=== PATIENT | female | born 1995 | race American Indian/Alaskan Native ===

== ENCOUNTER 2021-05-02 23:22 | Inpatient (IN) | payer MEDICAID ==
[2021-05-03] MEDS ORDERED: MORPHINE 4 MG/1 ML INJ IV ONE ×2 (02:42→04:54)
[2021-05-03] MEDS ORDERED: ONDANSETRON 4 MG/2 ML INJ IV ONE ×2 (02:42→04:54)
[2021-05-03] MEDS ORDERED: FAMOTIDINE 20 MG/2 ML INJ IV ONE (02:42)
[2021-05-03] MEDS ORDERED: SODIUM CHLORIDE 0.9% 1000 ML 1,000 ML IV ONE (02:42)
[2021-05-03 03:22] LABS: Basophils # (Auto) 0.1 K/mm3 (0.0-0.1); Basophils % (Auto) 0.7 % (0.0-1.8); Eosinophils # (Auto) 0.1 K/mm3 (0.0-0.4); Eosinophils % (Auto) 1.1 % (0.0-4.3); Hematocrit 39.4 % (30.3-42.9); Lymphocytes # (Auto) 2.9 K/mm3 (1.2-5.4); Lymphocytes % (Auto) 32.9 % (13.4-35.0); Mean Corpuscular HGB Conc 33 % (30-34); Mean Corpuscular Volume 92 fl (79-97); Monocytes # (Auto) 0.4 K/mm3 (0.0-0.8); Monocytes % (Auto) 5.1 % (0.0-7.3); Platelet Count 320 K/mm3 (140-440); Red Blood Count 4.26 M/mm3 (3.65-5.03); Red Cell Distribution Width 14.2 % (13.2-15.2)
[2021-05-03 03:43] LABS: Alanine Aminotransferase 17 units/L (7-56); Albumin 4.4 g/dL (3.9-5); Blood Urea Nitrogen 8 mg/dL (7-17); Calcium 9.1 mg/dL (8.4-10.2); Hemolysis Index 11
[2021-05-03 03:44] LABS: BUN/Creatinine Ratio 13
[2021-05-03 04:01] LABS: Bilirubin,Urine NEG (Negative); Blood,Urine NEG (Negative); Color,Urine Yellow (Yellow); Protein,Urine <15 mg/dL mg/dL (Negative); Urobilinogen,Urine < 2.0 mg/dL (<2.0)
[2021-05-03 04:15] LABS: RBC,Urine < 1.0 /HPF (0.0-6.0); WBC,Urine < 1.0 /HPF (0.0-6.0)
--- NOTE | 2021-05-03 04:33 | Cat Scan Report ---
CT ABDOMEN AND PELVIS WITH IV CONTRAST INDICATION: abdominal pain. COMPARISON: None available. TECHNIQUE: All CT scans at this facility use dose modulation, automated exposure control, iterative reconstructi on or weight based dosing, when appropriate, to reduce radiation dose to as low as reasonably achieva ble. FINDINGS: Lung Bases: No significant abnormality. Skeletal System: No acute abnormality. ABDOMEN: Liver: No significant abnormality. Gallbladder: There are several small gallstones. Mild gallbladder wall edema. Bile Ducts: No significant abnormality. Adrenals: No significant abnormality. Right Kidney: No significant abnormality. Left Kidney: No significant abnormality. Pancreas: No significant abnormality. Spleen: No significant abnormality. Upper GI tract: No significant abnormality. Lymph Nodes: No significant adenopathy. Aorta: No significant abnormality. Additional Findings: No significant abnormality. PELVIS: Colon: No acute abnormality. Diverticulosis is noted. Urinary Bladder and Distal Ureters: No significant abnormality. Appendix: Removed. Lymph Nodes: No significant adenopathy. Additional Findings: There is an incidental left ovarian cyst. IMPRESSION: 1. Cholelithiasis with mild gallbladder wall edema suggestive of acute cholecystitis. 2. Incidental findings, as above. Signer Name: Silver Tatum MD Signed: 05/03/2021 4:28 AM Workstation Name: [id number]
--- NOTE | 2021-05-03 04:47 | Emergency Department Report ---
ED Abdominal Pain HPI - General Chief Complaint: Abdominal Pain Stated Complaint: ABD PAIN Source: patient Mode of arrival: Ambulatory Limitations: No Limitations - History of Present Illness Initial Comments: Patient is a 25-year-old -Burkin[place] female with a history of iron deficiency anemia and s/p lap appendectomy 6 months ago presents to the ED with complaint of acute onset persistent right upper quadrant pain that radiates to the epigastric area with nausea and vomiting and diarrhea for the last 2 days. Patient states that she has not been able to keep anything down in the last 12 hours because of worsening pain and nausea and vomiting. Patient denies fever, chills, dizziness, syncope, chest pain, cough, dysuria, urinary frequency and urgency, change in vision, traumatic injury, hematemesis, hematochezia or vaginal bleeding. MD Complaint: abdominal pain (Right upper quadrant pain and epigastric pain;), other (nausea, vomiting and diarrhea) -: Sudden, days(s) (2) Location: RUQ, epigastric Radiation: RUQ, epigastric Migration to: RUQ, epigastric Severity scale (0 -10): 8 Quality: aching, sharp Consistency: constant Improves With: nothing Worsens With: vomiting, movement Context: possible food poisoning, other (GERD) Associated Symptoms: denies other symptoms, nausea, vomiting, diarrhea, anorexia. denies: fever, melena, hematuria - Related Data LMP Date: 04/08/21 Allergies Allergy/AdvReac Type Severity Reaction Status Date / Time No Known Allergies Allergy Verified 05/03/21 00:47 ED Review of Systems ROS: Stated complaint: ABD PAIN Other details as noted in HPI Constitutional: malaise, weakness. denies: chills, fever Eyes: denies: eye pain, eye discharge, vision change ENT: denies: ear pain, throat pain Respiratory: denies: cough, shortness of breath, wheezing Cardiovascular: denies: chest pain, palpitations Endocrine: no symptoms reported Gastrointestinal: abdominal pain (Right upper quadrant, epigastric pain), nausea, vomiting. denies: diarrhea Genitourinary: denies: urgency, dysuria, frequency, hematuria, discharge, abnormal menses Musculoskeletal: denies: back pain, joint swelling, arthralgia Skin: denies: rash, lesions Neurological: denies: headache, weakness, paresthesias Psychiatric: denies: anxiety, depression Hematological/Lymphatic: denies: easy bleeding, easy bruising ED Past Medical Hx - Past Medical History Previous Medical History?: Yes Additional medical history: Anemia - Surgical History Past Surgical History?: Yes Additional Surgical History: Appendix ED Physical Exam - General Limitations: No Limitations General appearance: alert, in no apparent distress - Head Head exam: Present: atraumatic, normocephalic, normal inspection - Eye Eye exam: Present: normal appearance, PERRL, EOMI Pupils: Present: normal accommodation - ENT ENT exam: Present: normal exam, normal orophraynx, mucous membranes moist, TM's normal bilaterally, normal external ear exam - Neck Neck exam: Present: normal inspection, full ROM - Respiratory Respiratory exam: Present: normal lung sounds bilaterally. Absent: respiratory distress, wheezes, rhonchi, stridor, chest wall tenderness, accessory muscle use - Cardiovascular Cardiovascular Exam: Present: normal rhythm, bradycardia, normal heart sounds. Absent: systolic murmur, diastolic murmur, rubs, gallop - GI/Abdominal GI/Abdominal exam: Present: soft, tenderness (Palpable reproducible right upper quadrant tenderness with positive Aggarwal sign), guarding, rebound, normal bowel sounds. Absent: distended, hyperactive bowel sounds, hypoactive bowel sounds, organomegaly - Extremities Exam Extremities exam: Present: normal inspection, full ROM, normal capillary refill - Back Exam Back exam: Present: normal inspection, full ROM. Absent: tenderness, CVA tenderness (R), CVA tenderness (L), muscle spasm, paraspinal tenderness, vertebral tenderness - Neurological Exam Neurological exam: Present: alert, oriented X3, CN II-XII intact, normal gait, reflexes normal - Psychiatric Psychiatric exam: Present: normal affect, normal mood - Skin Skin exam: Present: warm, dry, intact, normal color. Absent: rash ED Course Vital Signs 05/03/21 05/03/21 05/03/21 00:44 03:06 03:36 Temperature 98.5 F Pulse Rate 57 L Respiratory 17 14 14 Rate Blood Pressure 157/100 [Right] O2 Sat by Pulse 100 Oximetry - Reevaluation(s) Reevaluation #1: 05/03/21 04:48 I paged and discussed the patient's case with the general surgeon Dr. Dickens on- call who advised the patient the admitted to the hospital by the hospitalist physician and that the patient be started on IV antibiotics, pain medications and IV fluids and that she shall consult on the patient upon admission. ED Medical Decision Making - Lab Data Result diagrams: 05/03/21 02:58 05/03/21 02:58 - Radiology Data Radiology results: report reviewed, image reviewed [facility] [address] [place] [address] Cat Scan Report Signed Patient: CORTNEY SANTIAGO MR#: [id number] 8 : 1995 Acct:[id number] Age/Sex: 25 / F ADM Date: 05/02/21 Loc: ED Attending Dr: Ordering Physician: NAVIN CARTER Date of Service: 05/03/21 Procedure(s): CT abdomen pelvis w con Accession Number(s): [id number] cc: NAVIN CARTER CT ABDOMEN AND PELVIS WITH IV CONTRAST INDICATION: abdominal pain. COMPARISON: None available. TECHNIQUE: All CT scans at this facility use dose modulation, automated exposure control, iterative reconstruction or weight based dosing, when appropriate, to reduce radiation dose to as low as reasonably achievable. FINDINGS: Lung Bases: No significant abnormality. Skeletal System: No acute abnormality. ABDOMEN: Liver: No significant abnormality. Gallbladder: There are several small gallstones. Mild gallbladder wall edema. Bile Ducts: No significant abnormality. Adrenals: No significant abnormality. Right Kidney: No significant abnormality. Left Kidney: No significant abnormality. Pancreas: No significant abnormality. Spleen: No significant abnormality. Upper GI tract: No significant abnormality. Lymph Nodes: No significant adenopathy. Aorta: No significant abnormality. Additional Findings: No significant abnormality. PELVIS: Colon: No acute abnormality. Diverticulosis is noted. Urinary Bladder and Distal Ureters: No significant abnormality. Appendix: Removed. Lymph Nodes: No significant adenopathy. Additional Findings: There is an incidental left ovarian cyst. IMPRESSION: 1. Cholelithiasis with mild gallbladder wall edema suggestive of acute cholecystitis. 2. Incidental findings, as above. Signer Name: Silver Tatum MD Signed: 05/03/2021 4:28 AM Workstation Name: [id number] Transcribed By: PRAVEEN Dictated By: Silver Tatum MD Electronically Authenticated By: Silver Tatum MD Signed Date/Time: 05/03/21427 DD/ 5 TD/TT: - Medical Decision Making This is a 25-year-old -Burkin[place] female with a history of iron deficiency anemia and s/p lap appendectomy 6 months ago presents to the ED with complaint of acute onset persistent right upper quadrant pain that radiates to the epigastric area with nausea and vomiting and diarrhea for the last 2 days. Patient states that she has not been able to keep anything down in the last 12 hours because of worsening pain and nausea and vomiting. In the ED, patient is alert and oriented x3 and is not in any distress but appears to be in significant pain. Patient was treated for pain in the ED, also given antiemetics and antacids as well as normal saline 1 L IV bolus x1. Lab test results were reviewed and are all nonactionable including urinalysis. Abdomen pelvis CT scan with contrast showed cholelithiasis with mild gallbladder wall edema suggestive of acute cholecystitis. I therefore paged and discussed the patient's case with the general general surgeon on-call Dr. Dickens who advised that the patient be admitted to the hospital by the hospitalist physician on- call and that she shall consult on the patient upon admission. She also advised that the patient be started on IV antibiotics and pain medications as needed. I therefore paged and discussed the patient's case with the hospitalist physician Dr. Kyle who admitted the patient to the hospital. - Differential Diagnosis Cholelithiasis; cholecystitis; GERD; gastroenteritis; kidney stone; pregnan Critical care attestation.: If time is entered above; I have spent that time in minutes in the direct care of this critically ill patient, excluding procedure time. ED Disposition Clinical Impression: Acute abdominal pain in right upper quadrant, Nausea, vomiting and diarrhea Cholelithiasis and cholecystitis without obstruction Qualifiers: Cholelithiasis location: gallbladder Cholecystitis acuity: acute Qualified Code(s): K80.00 - Calculus of gallbladder with acute cholecystitis without obstruction Disposition: 02 [facility] Is pt being admited?: Yes Does the pt Need Aspirin: No Condition: Stable Instructions: Abdominal Pain (ED), Abdominal Pain, Adult, [id number], Cholelithiasis, [id number], Nausea and Vomiting, Adult, [id number] Referrals: PRIMARY CARE,MD [Primary Care Provider] - 3-5 Days Time of Disposition: 05:02 Print Language: EQUATORIAL GUINEAN
[2021-05-03] MEDS ORDERED: PIPERACILLIN/TAZOBACTAM 3.375 3.375 GM/50 ML BAG IV ONE (04:59)
[2021-05-03] MEDS ORDERED: ONDANSETRON 4 MG/2 ML INJ IV PRN (05:13)
[2021-05-03] MEDS ORDERED: HYDROmorphone 1 MG/1 ML INJ IV PRN (05:13)
[2021-05-03] MEDS ORDERED: ACETAMINOPHEN 325 MG TAB PO PRN (05:13)
--- NOTE | 2021-05-03 08:45 | History and Physical Report ---
History of Present Illness Date of examination: 05/03/21 Date of admission: 05/03/21 05:13 Chief complaint: Abdominal pain. History of present illness: Patient is a 25-year-old -Singaporean female with a history of iron deficiency anemia and s/p lap appendectomy 6 months ago presents to the ED with complaint of acute onset persistent right upper quadrant pain that radiates to the epigastric area with nausea and diarrhea for the last 2-3 weeks (but worsened over the last 3 days). Patient states that she has not been able to keep anything down in the last 12 hours because of worsening pain and nausea and vomiting. Patient denies fever, chills, dizziness, syncope, chest pain, cough, dysuria, urinary frequency and urgency, change in vision, traumatic injury, hematemesis, hematochezia or vaginal bleeding. Past History Past Surgical History: appendectomy, Other (Liposuction) Social history: , lives with family, full code Family history: hypertension Medications and Allergies Allergies Allergy/AdvReac Type Severity Reaction Status Date / Time No Known Allergies Allergy Verified 05/03/21 00:47 Home Medications Medication Instructions Recorded Confirmed Last Taken Type No Known Home Medications [No 05/03/21 05/03/21 Unknown History Reported Home Medications] Active Meds: Active Medications Acetaminophen (Acetaminophen 325 Mg Tab) 650 mg PO Q4H PRN PRN Reason: Pain MILD(1-3)/Fever >100.5/DESIR Hydromorphone HCl (Hydromorphone 1 Mg/1 Ml Inj) 0.5 mg IV Q3H PRN PRN Reason: Pain , Severe (7-10) Morphine Sulfate (Morphine 2 Mg/1 Ml Inj) 2 mg IV Q4H PRN PRN Reason: Pain, Moderate (4-6) Morphine Sulfate (Morphine 4 Mg/1 Ml Inj) 4 mg IV Q4H PRN PRN Reason: Pain , Severe (7-10) Ondansetron HCl (Ondansetron 4 Mg/2 Ml Inj) 4 mg IV Q8H PRN PRN Reason: Nausea And Vomiting Sodium Chloride (Sodium Chloride 0.9% 10 Ml Flush Syringe) 10 ml IV BID CHIP Sodium Chloride (Sodium Chloride 0.9% 10 Ml Flush Syringe) 10 ml IV PRN PRN PRN Reason: LINE FLUSH Review of Systems All systems: negative Gastrointestinal: abdominal pain, nausea, loss of appetite Exam - Constitutional Vitals: Temp Pulse Resp BP Pulse Ox 97.6 F 48 L 16 123/66 100 05/03/21 06:25 05/03/21 06:25 05/03/21 06:25 05/03/21 06:25 05/03/21 06:25 General appearance: Present: no acute distress, well-nourished, obese - EENT Eyes: Present: PERRL, EOM intact ENT: hearing intact, clear oral mucosa, dentition normal - Neck Neck: Present: supple, normal ROM - Respiratory Respiratory effort: normal Respiratory: bilateral: CTA - Cardiovascular Rhythm: regular Heart Sounds: Present: S1 & S2 - Extremities Extremities: no ischemia, pulses intact, pulses symmetrical, No edema, normal temperature, normal color, Full ROM Peripheral Pulses: within normal limits - Abdominal General gastrointestinal: Present: soft, tender, non-distended, distended Localized gastrointestinal: tender: epigastric periumbilical Female genitourinary: Present: deferred - Rectal Rectal Exam: deferred - Integumentary Integumentary: Present: clear, warm, dry - Musculoskeletal Musculoskeletal: strength equal bilaterally - Psychiatric Psychiatric: appropriate mood/affect, intact judgment & insight, memory intact, cooperative - Neurologic Neurologic: CNII-XII intact, moves all extremities - Allied Health Allied health notes reviewed: nursing Results - Labs CBC & Chem 7: 05/03/21 02:58 05/03/21 02:58 Labs: Laboratory Last Values WBC 8.7 K/mm3 (4.5-11.0) 05/03/21 02:58 RBC 4.26 M/mm3 (3.65-5.03) 05/03/21 02:58 Hgb 13.0 gm/dl (10.1-14.3) 05/03/21 02:58 Hct 39.4 % (30.3-42.9) 05/03/21 02:58 MCV 92 fl (79-97) 05/03/21 02:58 MCH 31 pg (28-32) 05/03/21 02:58 MCHC 33 % (30-34) 05/03/21 02:58 RDW 14.2 % (13.2-15.2) 05/03/21 02:58 Plt Count 320 K/mm3 (140-440) 05/03/21 02:58 Lymph % (Auto) 32.9 % (13.4-35.0) 05/03/21 02:58 [place] % (Auto) 5.1 % (0.0-7.3) 05/03/21 02:58 Eos % (Auto) 1.1 % (0.0-4.3) 05/03/21 02:58 Baso % (Auto) 0.7 % (0.0-1.8) 05/03/21 02:58 Lymph # (Auto) 2.9 K/mm3 (1.2-5.4) 05/03/21 02:58 [place] # (Auto) 0.4 K/mm3 (0.0-0.8) 05/03/21 02:58 Eos # (Auto) 0.1 K/mm3 (0.0-0.4) 05/03/21 02:58 Baso # (Auto) 0.1 K/mm3 (0.0-0.1) 05/03/21 02:58 Seg Neutrophils % 60.2 % (40.0-70.0) 05/03/21 02:58 Seg Neutrophils # 5.3 K/mm3 (1.8-7.7) 05/03/21 02:58 Sodium 141 mmol/L (137-145) 05/03/21 02:58 Potassium 3.8 mmol/L (3.6-5.0) 05/03/21 02:58 Chloride 102.6 mmol/L (98-107) 05/03/21 02:58 Carbon Dioxide 23 mmol/L (22-30) 05/03/21 02:58 Anion Gap 19 mmol/L 05/03/21 02:58 BUN 8 mg/dL (7-17) 05/03/21 02:58 Creatinine 0.6 mg/dL (0.6-1.2) 05/03/21 02:58 Estimated GFR > 60 ml/min 05/03/21 02:58 BUN/Creatinine Ratio 13 % 05/03/21 02:58 Glucose 89 mg/dL (65-100) 05/03/21 02:58 Calcium 9.1 mg/dL (8.4-10.2) 05/03/21 02:58 Total Bilirubin 0.30 mg/dL (0.1-1.2) 05/03/21 02:58 AST 19 units/L (5-40) 05/03/21 02:58 ALT 17 units/L (7-56) 05/03/21 02:58 Alkaline Phosphatase 93 units/L (35-129) 05/03/21 02:58 Total Protein 7.8 g/dL (6.3-8.2) 05/03/21 02:58 Albumin 4.4 g/dL (3.9-5) 05/03/21 02:58 Albumin/Globulin Ratio 1.3 % 05/03/21 02:58 Lipase 38 units/L (13-60) 05/03/21 02:58 HCG, Qual Negative (Negative) 05/03/21 02:58 Urine Color Yellow (Yellow) 05/03/21 03:26 Urine Turbidity Clear (Clear) 05/03/21 03:26 Urine pH 6.0 (5.0-7.0) 05/03/21 03:26 Ur Specific [place] 1.021 (1.003-1.030) 05/03/21 03:26 Urine Protein <15 mg/dl mg/dL (Negative) 05/03/21 03:26 Urine Glucose (UA) Neg mg/dL (Negative) 05/03/21 03:26 Urine Ketones Neg mg/dL (Negative) 05/03/21 03:26 Urine Blood Neg (Negative) 05/03/21 03:26 Urine Nitrite Neg (Negative) 05/03/21 03:26 Urine Bilirubin Neg (Negative) 05/03/21 03:26 Urine Urobilinogen < 2.0 mg/dL (<2.0) 05/03/21 03:26 Ur Leukocyte Esterase Neg (Negative) 05/03/21 03:26 Urine WBC (Auto) < 1.0 /HPF (0.0-6.0) 05/03/21 03:26 Urine RBC (Auto) < 1.0 /HPF (0.0-6.0) 05/03/21 03:26 Assessment and Plan Assessment and plan: #Acute cholecystitis CT abdomen/pelvis with contrast consistent with possible acute cholecystitis Continue n.p.o. status General surgery consulted; appreciate recs Continue analgesics as needed and antiemetics Continue to monitor #Obesity #Weight loss counseling #Exercise counseling - BMI 37.6 - Counseled patient on the importance of weight loss, incorporating exercise, and dietary changes (lean meats, fresh fruits and vegetables, and water intake). Patient expresses understanding. - Time: +15 min #Advanced care planning -Disease education conducted, care plan discussed, diagnoses discussed, prognosis discussed, and patient acknowledges understanding with care plan -Time: +30 min Advance Directives: Yes VTE prophylaxis?: Chemical Plan of care discussed with patient/family: Yes
[2021-05-03] MEDS ORDERED: MORPHINE 4 MG/1 ML INJ IV PRN (10:00)
[2021-05-03] MEDS: HEPARIN 5,000 UNIT/1 ML VIAL SUB-Q SCH ×3 (10:12→21:12)
--- NOTE | 2021-05-03 11:05 | Consultation ---
History of Present Illness Consult date: 05/03/21 Reason for consult: gallstones - History of present illness History of present illness: General surgery called to consult on 25-year-old female who presented to the emergency room with a less than 1 day history of worsening right sided abdominal pain with nausea and vomiting. Patient had a CT scan that showed cholelithiasis, and gallbladder wall edema suggestive of cholecystitis. Patient says currently she feels much better than on admission and she has never had this pain before. Past History Past Medical History: No medical history Past Surgical History: appendectomy, Other (liposuction) Social history: no significant social history Family history: hypertension Medications and Allergies Allergies Allergy/AdvReac Type Severity Reaction Status Date / Time No Known Allergies Allergy Verified 05/03/21 00:47 Home Medications Medication Instructions Recorded Confirmed Last Taken Type No Known Home Medications [No 05/03/21 05/03/21 Unknown History Reported Home Medications] Active Meds: Active Medications Acetaminophen (Acetaminophen 325 Mg Tab) 650 mg PO Q4H PRN PRN Reason: Pain MILD(1-3)/Fever >100.5/DESIR Heparin Sodium (Porcine) (Heparin 5,000 Unit/1 Ml Vial) 5,000 unit SUB-Q Q8HR [facility] Last Admin: 05/03/21 10:12 Dose: 5,000 unit Hydromorphone HCl (Hydromorphone 1 Mg/1 Ml Inj) 0.5 mg IV Q3H PRN PRN Reason: Pain , Severe (7-10) Morphine Sulfate (Morphine 2 Mg/1 Ml Inj) 2 mg IV Q4H PRN PRN Reason: Pain, Moderate (4-6) Morphine Sulfate (Morphine 4 Mg/1 Ml Inj) 4 mg IV Q4H PRN PRN Reason: Pain , Severe (7-10) Ondansetron HCl (Ondansetron 4 Mg/2 Ml Inj) 4 mg IV Q8H PRN PRN Reason: Nausea And Vomiting Sodium Chloride (Sodium Chloride 0.9% 10 Ml Flush Syringe) 10 ml IV BID [facility] Last Admin: 05/03/21 10:13 Dose: 10 ml Sodium Chloride (Sodium Chloride 0.9% 10 Ml Flush Syringe) 10 ml IV PRN PRN PRN Reason: LINE FLUSH Review of Systems All systems: negative - Gastrointestinal abdominal pain, nausea, vomiting Exam Vital Signs Temp Pulse Resp BP Pulse Ox 98.5 F 57 L 17 157/100 100 05/03/21 00:44 05/03/21 00:44 05/03/21 00:44 05/03/21 00:44 05/03/21 00:44 - General physical appearance Positive: well developed, no distress, no pain - Eyes Negative: icteric - ENT Positive: no hearing loss - Respiratory Positive: normal expansion, normal respiratory effort - Cardiovascular Heart Sounds: Present: S1 & S2 - Extremities Extremities: no ischemia - Abdomen Abdomen: Present: soft, other (tender to deep palpation in the RUQ) - Neurologic Neurologic: alert and oriented to time, place and person, motor strength and sensation are grossly intact, CN II-XII intact - Musculoskeletal normal gait - Psychiatric Psychiatric: appropriate mood/affect Results - Labs 05/03/21 02:58 05/03/21 02:58 Diabetes panel 05/03/21 Range/Units 02:58 Sodium 141 (137-145) mmol/L Potassium 3.8 (3.6-5.0) mmol/L Chloride 102.6 (98-107) mmol/L Carbon Dioxide 23 (22-30) mmol/L BUN 8 (7-17) mg/dL Creatinine 0.6 (0.6-1.2) mg/dL Glucose 89 (65-100) mg/dL Calcium 9.1 (8.4-10.2) mg/dL AST 19 (5-40) units/L ALT 17 (7-56) units/L Alkaline Phosphatase 93 (35-129) units/L Total Protein 7.8 (6.3-8.2) g/dL Albumin 4.4 (3.9-5) g/dL Calcium panel 05/03/21 Range/Units 02:58 Calcium 9.1 (8.4-10.2) mg/dL Albumin 4.4 (3.9-5) g/dL Pituitary panel 05/03/21 Range/Units 02:58 Sodium 141 (137-145) mmol/L Potassium 3.8 (3.6-5.0) mmol/L Chloride 102.6 (98-107) mmol/L Carbon Dioxide 23 (22-30) mmol/L BUN 8 (7-17) mg/dL Creatinine 0.6 (0.6-1.2) mg/dL Glucose 89 (65-100) mg/dL Calcium 9.1 (8.4-10.2) mg/dL Adrenal panel 05/03/21 Range/Units 02:58 Sodium 141 (137-145) mmol/L Potassium 3.8 (3.6-5.0) mmol/L Chloride 102.6 (98-107) mmol/L Carbon Dioxide 23 (22-30) mmol/L BUN 8 (7-17) mg/dL Creatinine 0.6 (0.6-1.2) mg/dL Glucose 89 (65-100) mg/dL Calcium 9.1 (8.4-10.2) mg/dL Total Bilirubin 0.30 (0.1-1.2) mg/dL AST 19 (5-40) units/L ALT 17 (7-56) units/L Alkaline Phosphatase 93 (35-129) units/L Total Protein 7.8 (6.3-8.2) g/dL Albumin 4.4 (3.9-5) g/dL - Imaging CT scan - abdomen: report reviewed, image reviewed CT scan - pelvis: report reviewed, image reviewed Assessment and Plan 25-year-old female with cholelithiasis/cholecystitis. Afebrile and stable. Patient would like to have her gallbladder out this admission. Will consent patient and schedule for laparoscopic cholecystectomy Wednesday. Patient can have clear liquids.
[2021-05-03] MEDS: MORPHINE 2 MG/1 ML INJ IV PRN (21:09)
[2021-05-04] MEDS: HEPARIN 5,000 UNIT/1 ML VIAL SUB-Q SCH ×3 (05:36→21:21)
--- NOTE | 2021-05-04 06:16 | Progress Note ---
Assessment and Plan Patient with acute cholecystitis despite being on clear liquid diet. Tentatively planning for cholecystectomy this admission. Subjective Date of service: 05/04/21 Patient Reports: Positive: no new complaints, still having pain Narrative: Patient with acute cholecystitis despite being on clear liquid diet. Tentatively planning for cholecystectomy this admission. Objective Vital Signs - 12hr 05/03/21 05/03/21 05/04/21 21:03 22:00 00:52 Temperature 98.2 F 99 F Pulse Rate 63 77 Respiratory 16 16 18 Rate Blood Pressure 126/53 Blood Pressure 111/65 [Right] O2 Sat by Pulse 100 100 94 Oximetry 05/04/21 05:44 Temperature 98.0 F Pulse Rate 58 L Respiratory 16 Rate Blood Pressure 113/55 Blood Pressure [Right] O2 Sat by Pulse 98 Oximetry - General physical appearance well developed, no distress - Respiratory normal expansion - Abdomen soft, tender - Integumentary no rash - Psychiatric oriented to time, oriented to person, oriented to place, speech is normal, memory intact - Labs 05/04/21 06:30 05/03/21 02:58
[2021-05-04 07:10] LABS: Basophils % (Auto) 0.4 % (0.0-1.8); Eosinophils # (Auto) 0.1 K/mm3 (0.0-0.4); Eosinophils % (Auto) 1.6 % (0.0-4.3); Hematocrit 35.9 % (30.3-42.9); Lymphocytes # (Auto) 2.4 K/mm3 (1.2-5.4); Lymphocytes % (Auto) 48.9 % (13.4-35.0); Mean Corpuscular HGB Conc 33 % (30-34); Mean Corpuscular Volume 92 fl (79-97); Monocytes # (Auto) 0.3 K/mm3 (0.0-0.8); Monocytes % (Auto) 6.6 % (0.0-7.3); Platelet Count 247 K/mm3 (140-440)
[2021-05-04 07:34] LABS: Alanine Aminotransferase 19 units/L (7-56); Albumin 3.9 g/dL (3.9-5); Blood Urea Nitrogen 2 mg/dL (7-17); Calcium 9.1 mg/dL (8.4-10.2); Hemolysis Index 3
[2021-05-04 07:41] LABS: BUN/Creatinine Ratio 3
--- NOTE | 2021-05-04 09:25 | Progress Note ---
Assessment and Plan Assessment and plan: #Acute cholecystitis CT abdomen/pelvis with contrast consistent with possible acute cholecystitis Continue clear liquids and will be n.p.o. at midnight General surgery consulted; appreciate recs Continue analgesics as needed and antiemetics Continue to monitor #Obesity #Weight loss counseling #Exercise counseling - BMI 37.6 - Counseled patient on the importance of weight loss, incorporating exercise, and dietary changes (lean meats, fresh fruits and vegetables, and water intake). Patient expresses understanding. - Time: +15 min #Advanced care planning -Disease education conducted, care plan discussed, diagnoses discussed, prognosis discussed, and patient acknowledges understanding with care plan -Time: +30 min #Discharge planning - Patient is pending cholecystectomy by general surgery on 05/05/2021 - Case management has been made aware. - Discharge is tentatively 24-48 hours Disposition Plan: Continue medical management Total Time Spent with Patient (Minutes): 30 minutes History Interval history: No acute events overnight. Hospitalist Physical - Constitutional Vitals: Temp Pulse Resp BP Pulse Ox 98.0 F 58 L 16 113/55 98 05/04/21 05:44 05/04/21 05:44 05/04/21 05:44 05/04/21 05:44 05/04/21 05:44 General appearance: Present: no acute distress, well-nourished, obese - EENT Eyes: Present: PERRL, EOM intact ENT: hearing intact, clear oral mucosa, dentition normal - Neck Neck: Present: supple, normal ROM - Respiratory Respiratory effort: normal Respiratory: bilateral: CTA - Cardiovascular Rhythm: regular Heart Sounds: Present: S1 & S2 - Extremities Extremities: no ischemia, pulses intact, pulses symmetrical, No edema, normal temperature, normal color, Full ROM Peripheral Pulses: within normal limits - Abdominal General gastrointestinal: soft, tender, non-distended, normal bowel sounds - Integumentary Integumentary: Present: clear, warm, dry - Psychiatric Psychiatric: appropriate mood/affect, intact judgment & insight, memory intact, cooperative - Neurologic Neurologic: CNII-XII intact, moves all extremities - Allied Health Allied health notes reviewed: nursing Results - Labs CBC & Chem 7: 05/04/21 06:30 05/04/21 06:30 Labs: Laboratory Last Values WBC 4.9 K/mm3 (4.5-11.0) 05/04/21 06:30 RBC 3.90 M/mm3 (3.65-5.03) 05/04/21 06:30 Hgb 12.0 gm/dl (10.1-14.3) 05/04/21 06:30 Hct 35.9 % (30.3-42.9) 05/04/21 06:30 MCV 92 fl (79-97) 05/04/21 06:30 MCH 31 pg (28-32) 05/04/21 06:30 MCHC 33 % (30-34) 05/04/21 06:30 RDW 14.0 % (13.2-15.2) 05/04/21 06:30 Plt Count 247 K/mm3 (140-440) 05/04/21 06:30 Lymph % (Auto) 48.9 % (13.4-35.0) H 05/04/21 06:30 [place] % (Auto) 6.6 % (0.0-7.3) 05/04/21 06:30 Eos % (Auto) 1.6 % (0.0-4.3) 05/04/21 06:30 Baso % (Auto) 0.4 % (0.0-1.8) 05/04/21 06:30 Lymph # (Auto) 2.4 K/mm3 (1.2-5.4) 05/04/21 06:30 [place] # (Auto) 0.3 K/mm3 (0.0-0.8) 05/04/21 06:30 Eos # (Auto) 0.1 K/mm3 (0.0-0.4) 05/04/21 06:30 Baso # (Auto) 0.0 K/mm3 (0.0-0.1) 05/04/21 06:30 Seg Neutrophils % 42.5 % (40.0-70.0) 05/04/21 06:30 Seg Neutrophils # 2.1 K/mm3 (1.8-7.7) 05/04/21 06:30 Sodium 137 mmol/L (137-145) 05/04/21 06:30 Potassium 3.5 mmol/L (3.6-5.0) L 05/04/21 06:30 Chloride 101.1 mmol/L (98-107) 05/04/21 06:30 Carbon Dioxide 23 mmol/L (22-30) 05/04/21 06:30 Anion Gap 16 mmol/L 05/04/21 06:30 BUN 2 mg/dL (7-17) L 05/04/21 06:30 Creatinine 0.7 mg/dL (0.6-1.2) 05/04/21 06:30 Estimated GFR > 60 ml/min 05/04/21 06:30 BUN/Creatinine Ratio 3 % 05/04/21 06:30 Glucose 91 mg/dL (65-100) 05/04/21 06:30 Calcium 9.1 mg/dL (8.4-10.2) 05/04/21 06:30 Total Bilirubin 0.60 mg/dL (0.1-1.2) 05/04/21 06:30 AST 23 units/L (5-40) 05/04/21 06:30 ALT 19 units/L (7-56) 05/04/21 06:30 Alkaline Phosphatase 75 units/L (35-129) 05/04/21 06:30 Total Protein 6.6 g/dL (6.3-8.2) 05/04/21 06:30 Albumin 3.9 g/dL (3.9-5) 05/04/21 06:30 Albumin/Globulin Ratio 1.4 % 05/04/21 06:30 Lipase 38 units/L (13-60) 05/03/21 02:58 HCG, Qual Negative (Negative) 05/03/21 02:58 Urine Color Yellow (Yellow) 05/03/21 03:26 Urine Turbidity Clear (Clear) 05/03/21 03:26 Urine pH 6.0 (5.0-7.0) 05/03/21 03:26 Ur Specific [place] 1.021 (1.003-1.030) 05/03/21 03:26 Urine Protein <15 mg/dl mg/dL (Negative) 05/03/21 03:26 Urine Glucose (UA) Neg mg/dL (Negative) 05/03/21 03:26 Urine Ketones Neg mg/dL (Negative) 05/03/21 03:26 Urine Blood Neg (Negative) 05/03/21 03:26 Urine Nitrite Neg (Negative) 05/03/21 03:26 Urine Bilirubin Neg (Negative) 05/03/21 03:26 Urine Urobilinogen < 2.0 mg/dL (<2.0) 05/03/21 03:26 Ur Leukocyte Esterase Neg (Negative) 05/03/21 03:26 Urine WBC (Auto) < 1.0 /HPF (0.0-6.0) 05/03/21 03:26 Urine RBC (Auto) < 1.0 /HPF (0.0-6.0) 05/03/21 03:26 Vitale/IV: Voiding Method Toilet Active Medications - Current Medications Current Medications: Generic Name Dose Route Start Last Admin Trade Name Freq PRN Reason Stop Dose Admin Acetaminophen 650 mg 05/03/21 05:13 Acetaminophen 325 Mg Tab PO Q4H PRN Pain MILD(1-3)/Fever >100.5/DESIR Heparin Sodium (Porcine) 5,000 unit 05/03/21 09:00 05/04/21 05:36 Heparin 5,000 Unit/1 Ml Vial SUB-Q 5,000 unit Q8HR CHIP Administration Hydromorphone HCl 0.5 mg 05/03/21 05:13 Hydromorphone 1 Mg/1 Ml Inj IV Q3H PRN Pain , Severe (7-10) Morphine Sulfate 2 mg 05/03/21 05:13 05/03/21 21:09 Morphine 2 Mg/1 Ml Inj IV 2 mg Q4H PRN Administration Pain, Moderate (4-6) Morphine Sulfate 4 mg 05/03/21 10:00 Morphine 4 Mg/1 Ml Inj IV Q4H PRN Pain , Severe (7-10) Ondansetron HCl 4 mg 05/03/21 05:13 Ondansetron 4 Mg/2 Ml Inj IV Q8H PRN Nausea And Vomiting Sodium Chloride 10 ml 05/03/21 10:00 05/03/21 21:15 Sodium Chloride 0.9% 10 Ml Flush Syringe IV 10 ml BID CHIP Administration Sodium Chloride 10 ml 05/03/21 05:13 Sodium Chloride 0.9% 10 Ml Flush Syringe IV PRN PRN LINE FLUSH
[2021-05-04] MEDS: MORPHINE 2 MG/1 ML INJ IV PRN (22:04)
[2021-05-05] MEDS: HEPARIN 5,000 UNIT/1 ML VIAL SUB-Q SCH ×3 (05:31→21:12)
[2021-05-05 06:34] LABS: INR 0.96 (0.87-1.13)
[2021-05-05 06:39] LABS: Blood Urea Nitrogen 5 mg/dL (7-17); Calcium 8.4 mg/dL (8.4-10.2); Hemolysis Index 5
[2021-05-05 06:40] LABS: BUN/Creatinine Ratio 8
--- NOTE | 2021-05-05 11:19 | Progress Note ---
Assessment and Plan Assessment and plan: #Acute cholecystitis CT abdomen/pelvis with contrast consistent with possible acute cholecystitis General surgery consulted; appreciate recs Clear liquid diet can be started after procedure Continue analgesics as needed and antiemetics Continue to monitor #Obesity #Weight loss counseling #Exercise counseling - BMI 37.6 - Counseled patient on the importance of weight loss, incorporating exercise, and dietary changes (lean meats, fresh fruits and vegetables, and water intake). Patient expresses understanding. - Time: +15 min #Advanced care planning -Disease education conducted, care plan discussed, diagnoses discussed, prognosis discussed, and patient acknowledges understanding with care plan -Time: +30 min #Discharge planning - Patient is pending cholecystectomy by general surgery on 05/05/2021 (today) - Case management has been made aware. - Discharge is tentatively 24-48 hours Disposition Plan: Pending laparoscopic cholecystectomy Total Time Spent with Patient (Minutes): 30 minutes History Interval history: No acute events overnight. Hospitalist Physical - Constitutional Vitals: Temp Pulse Resp BP Pulse Ox 98.0 F 60 18 121/64 99 05/04/21 21:42 05/04/21 21:42 05/04/21 22:00 05/04/21 21:42 05/04/21 22:00 General appearance: Present: no acute distress, well-nourished, obese - EENT Eyes: Present: PERRL, EOM intact ENT: hearing intact, clear oral mucosa, dentition normal - Neck Neck: Present: supple, normal ROM - Respiratory Respiratory effort: normal Respiratory: bilateral: CTA - Cardiovascular Rhythm: regular Heart Sounds: Present: S1 & S2 - Extremities Extremities: no ischemia, pulses intact, pulses symmetrical, No edema, normal temperature, normal color, Full ROM Peripheral Pulses: within normal limits - Abdominal General gastrointestinal: soft, non-tender, non-distended, normal bowel sounds - Integumentary Integumentary: Present: clear, warm, dry - Psychiatric Psychiatric: appropriate mood/affect, intact judgment & insight, memory intact, cooperative - Neurologic Neurologic: CNII-XII intact, moves all extremities - Allied Health Allied health notes reviewed: nursing Results - Labs CBC & Chem 7: 05/04/21 06:30 05/05/21 06:01 Labs: Laboratory Last Values WBC 4.9 K/mm3 (4.5-11.0) 05/04/21 06:30 RBC 3.90 M/mm3 (3.65-5.03) 05/04/21 06:30 Hgb 12.0 gm/dl (10.1-14.3) 05/04/21 06:30 Hct 35.9 % (30.3-42.9) 05/04/21 06:30 MCV 92 fl (79-97) 05/04/21 06:30 MCH 31 pg (28-32) 05/04/21 06:30 MCHC 33 % (30-34) 05/04/21 06:30 RDW 14.0 % (13.2-15.2) 05/04/21 06:30 Plt Count 247 K/mm3 (140-440) 05/04/21 06:30 Lymph % (Auto) 48.9 % (13.4-35.0) H 05/04/21 06:30 [place] % (Auto) 6.6 % (0.0-7.3) 05/04/21 06:30 Eos % (Auto) 1.6 % (0.0-4.3) 05/04/21 06:30 Baso % (Auto) 0.4 % (0.0-1.8) 05/04/21 06:30 Lymph # (Auto) 2.4 K/mm3 (1.2-5.4) 05/04/21 06:30 [place] # (Auto) 0.3 K/mm3 (0.0-0.8) 05/04/21 06:30 Eos # (Auto) 0.1 K/mm3 (0.0-0.4) 05/04/21 06:30 Baso # (Auto) 0.0 K/mm3 (0.0-0.1) 05/04/21 06:30 Seg Neutrophils % 42.5 % (40.0-70.0) 05/04/21 06:30 Seg Neutrophils # 2.1 K/mm3 (1.8-7.7) 05/04/21 06:30 PT 13.8 Sec. (12.2-14.9) 05/05/21 06:01 INR 0.96 (0.87-1.13) 05/05/21 06:01 Sodium 138 mmol/L (137-145) 05/05/21 06:01 Potassium 3.6 mmol/L (3.6-5.0) 05/05/21 06:01 Chloride 101.9 mmol/L (98-107) 05/05/21 06:01 Carbon Dioxide 22 mmol/L (22-30) 05/05/21 06:01 Anion Gap 18 mmol/L 05/05/21 06:01 BUN 5 mg/dL (7-17) L 05/05/21 06:01 Creatinine 0.6 mg/dL (0.6-1.2) 05/05/21 06:01 Estimated GFR > 60 ml/min 05/05/21 06:01 BUN/Creatinine Ratio 8 % 05/05/21 06:01 Glucose 93 mg/dL (65-100) 05/05/21 06:01 Calcium 8.4 mg/dL (8.4-10.2) 05/05/21 06:01 Total Bilirubin 0.60 mg/dL (0.1-1.2) 05/04/21 06:30 AST 23 units/L (5-40) 05/04/21 06:30 ALT 19 units/L (7-56) 05/04/21 06:30 Alkaline Phosphatase 75 units/L (35-129) 05/04/21 06:30 Total Protein 6.6 g/dL (6.3-8.2) 05/04/21 06:30 Albumin 3.9 g/dL (3.9-5) 05/04/21 06:30 Albumin/Globulin Ratio 1.4 % 05/04/21 06:30 Lipase 38 units/L (13-60) 05/03/21 02:58 HCG, Qual Negative (Negative) 05/03/21 02:58 Urine Color Yellow (Yellow) 05/03/21 03:26 Urine Turbidity Clear (Clear) 05/03/21 03:26 Urine pH 6.0 (5.0-7.0) 05/03/21 03:26 Ur Specific [place] 1.021 (1.003-1.030) 05/03/21 03:26 Urine Protein <15 mg/dl mg/dL (Negative) 05/03/21 03:26 Urine Glucose (UA) Neg mg/dL (Negative) 05/03/21 03:26 Urine Ketones Neg mg/dL (Negative) 05/03/21 03:26 Urine Blood Neg (Negative) 05/03/21 03:26 Urine Nitrite Neg (Negative) 05/03/21 03:26 Urine Bilirubin Neg (Negative) 05/03/21 03:26 Urine Urobilinogen < 2.0 mg/dL (<2.0) 05/03/21 03:26 Ur Leukocyte Esterase Neg (Negative) 05/03/21 03:26 Urine WBC (Auto) < 1.0 /HPF (0.0-6.0) 05/03/21 03:26 Urine RBC (Auto) < 1.0 /HPF (0.0-6.0) 05/03/21 03:26 Vitale/IV: Voiding Method Toilet Active Medications - Current Medications Current Medications: Generic Name Dose Route Start Last Admin Trade Name Freq PRN Reason Stop Dose Admin Acetaminophen 650 mg 05/03/21 05:13 Acetaminophen 325 Mg Tab PO Q4H PRN Pain MILD(1-3)/Fever >100.5/DESIR Heparin Sodium (Porcine) 5,000 unit 05/03/21 09:00 05/05/21 05:31 Heparin 5,000 Unit/1 Ml Vial SUB-Q Not Given Q8HR [facility] Hydromorphone HCl 0.5 mg 05/03/21 05:13 Hydromorphone 1 Mg/1 Ml Inj IV Q3H PRN Pain , Severe (7-10) Morphine Sulfate 2 mg 05/03/21 05:13 05/04/21 22:04 Morphine 2 Mg/1 Ml Inj IV 2 mg Q4H PRN Administration Pain, Moderate (4-6) Morphine Sulfate 4 mg 05/03/21 10:00 Morphine 4 Mg/1 Ml Inj IV Q4H PRN Pain , Severe (7-10) Ondansetron HCl 4 mg 05/03/21 05:13 05/04/21 22:04 Ondansetron 4 Mg/2 Ml Inj IV 4 mg Q8H PRN Administration Nausea And Vomiting Sodium Chloride 10 ml 05/03/21 10:00 05/05/21 09:40 Sodium Chloride 0.9% 10 Ml Flush Syringe IV 10 ml BID CHIP Administration Sodium Chloride 10 ml 05/03/21 05:13 Sodium Chloride 0.9% 10 Ml Flush Syringe IV PRN PRN LINE FLUSH
--- NOTE | 2021-05-05 11:26 | Progress Note ---
Assessment and Plan 25 year old female with cholelithiasis, cholecystitis. Scheduled for lap sven today. Subjective Date of service: 05/05/21 Narrative: no acute events overnight. Pt says that her pain is controlled. Objective - General physical appearance no distress, no pain - Eyes PERRL - Respiratory normal expansion, normal respiratory effort - Abdomen soft, not guarding, not rigid, other (tender to deep palpation RUQ) - Labs 05/04/21 06:30 05/05/21 06:01 Diabetes panel 05/05/21 Range/Units 06:01 Sodium 138 (137-145) mmol/L Potassium 3.6 (3.6-5.0) mmol/L Chloride 101.9 (98-107) mmol/L Carbon Dioxide 22 (22-30) mmol/L BUN 5 L (7-17) mg/dL Creatinine 0.6 (0.6-1.2) mg/dL Glucose 93 (65-100) mg/dL Calcium 8.4 (8.4-10.2) mg/dL Calcium panel 05/05/21 Range/Units 06:01 Calcium 8.4 (8.4-10.2) mg/dL Pituitary panel 05/05/21 Range/Units 06:01 Sodium 138 (137-145) mmol/L Potassium 3.6 (3.6-5.0) mmol/L Chloride 101.9 (98-107) mmol/L Carbon Dioxide 22 (22-30) mmol/L BUN 5 L (7-17) mg/dL Creatinine 0.6 (0.6-1.2) mg/dL Glucose 93 (65-100) mg/dL Calcium 8.4 (8.4-10.2) mg/dL Adrenal panel 05/05/21 Range/Units 06:01 Sodium 138 (137-145) mmol/L Potassium 3.6 (3.6-5.0) mmol/L Chloride 101.9 (98-107) mmol/L Carbon Dioxide 22 (22-30) mmol/L BUN 5 L (7-17) mg/dL Creatinine 0.6 (0.6-1.2) mg/dL Glucose 93 (65-100) mg/dL Calcium 8.4 (8.4-10.2) mg/dL
--- NOTE | 2021-05-05 13:14 | Anesthesia Consultation ---
Anesthesia Consult and Med Hx Date of service: 05/05/21 - Airway Anesthetic Teeth Evaluation: Good ROM Head & Neck: Adequate Mental/Hyoid Distance: Adequate Mallampati Class: Class II Intubation Access Assessment: Probably Good - Pulmonary Exam CTA: Yes - Cardiac Exam Cardiac Exam: RRR - Pre-Operative Health Status ASA Pre-Surgery Classification: ASA2 Proposed Anesthetic Plan: General - Pulmonary Hx Smoking: Yes (occasional hookah) Hx Asthma: No Hx Respiratory Symptoms: No - Cardiovascular System Hx Hypertension: No Hx Heart Attack/AMI: No - Central Nervous System Hx Neuromuscular Disorder: No Hx Psychiatric Problems: No - Gastrointestinal Hx Gastroesophageal Reflux Disease: No - Endocrine Hx Renal Disease: No Hx Liver Disease: No Hx Non-Insulin Dependent Diabetes: No Hx Thyroid Disease: No - Hematic Hx Anemia: Yes (Hgb 12.0 on 05/04) - Other Systems Hx Alcohol Use: Yes (occ) Hx Substance Use: No Hx Cancer: No Hx Obesity: Yes (BMI 37) - Additional Comments Anesthesia Medical History Comments: No hx of anesthetic complications
--- NOTE | 2021-05-05 13:14 | Anesthesia Day of Surgery ---
Anesthesia Day of Surgery - Day of Surgery Patient Examined: Yes Patient H&P Reviewed: Yes Patient is NPO: Yes
[2021-05-05] MEDS: MORPHINE 2 MG/1 ML INJ IV PRN (14:27)
[2021-05-05] MEDS ORDERED: ONDANSETRON 4 MG/2 ML INJ IV PRN (14:54)
[2021-05-05] MEDS ORDERED: LIDOCAINE MPF (2%) 20 MG/1 ML VIAL 5 ML ONE (15:00)
[2021-05-05] MEDS ORDERED: ROCURONIUM 50 MG/5 ML INJ IV ONE (15:00)
[2021-05-05] MEDS ORDERED: propofoL 200 MG/20 ML VIAL IV ONE (15:01)
[2021-05-05] MEDS ORDERED: HYDROmorphone 1 MG/1 ML INJ ONE (15:01)
[2021-05-05] MEDS ORDERED: MIDAZOLAM 2 MG/2 ML INJ ONE (15:03)
[2021-05-05] MEDS ORDERED: BUPIVACAINE/PF (0.5%) 5 MG/1 ML 30 ML VIAL INFILTRATI ONE ×2 (15:05→16:18)
[2021-05-05] MEDS ORDERED: LIDOCAINE 2%/EPINEPHRINE 1:100,000 VIAL (20 ML) INFILTRATI ONE ×2 (15:06→16:18)
[2021-05-05] MEDS ORDERED: LACTATED RINGERS 1,000 ML ONE (15:06)
[2021-05-05] MEDS ORDERED: dexAMETHasone 20 MG/5 ML VIAL ONE (15:46)
[2021-05-05] MEDS ORDERED: WATER FOR IRRIG STERILE 1,500 ML BOTTLE IR ONE (16:19)
[2021-05-05] MEDS: HYDROmorphone 1 MG/1 ML INJ IV PRN ×2 (17:29→17:39)
--- NOTE | 2021-05-05 17:59 | Operative Report ---
Operative Report Operative Report: Procedure Performed: Lap cholecystectomy Date of Service: 05/05/2021 Primary Surgeon: KarleenaTuggle. RICH Assisted by: Shamika Kumar DO Anesthesia: General Pre-Operative Diagnosis: cholelithiasis/ cholecystitis Post-Operative Diagnosis: Same Indications for Procedure: 25 year old female presented to ED with abdominal pain. Found to have cholelithiasis/ cholecystitis on CT scan. Pt consented for lap sven. She expressed understanding of the risks and benefits. Description of Procedure(s): The patient was brought to the operating room and underwent general anesthesia after lower extremity SCD were placed. The abdomen was prepped and draped in the standard fashion. IV antibiotics were given and a time out was performed. Using a veress needle via a stab incision in the left subcostal region, the abdomen was insuflated to a pressure of 15mmHg. Using optivew technique, a 5mm trocar was placed just superior and to the left of the umbilicus. There was no gross injury noted to any intra-abdominal structures. After which working trocars were placed under direct visualization. A 12 mm trocar was placed in the epigastrium, and two more 5 mm trocars were inserted in the right lateral sites. The gallbladder was located and grasped at the fundus and retracted up toward the patient's right shoulder. The infundibulum was grasped and retracted laterally. A window was made between the cystic artery and the cystic duct, clearly delineating the two structures. These were clipped with a 5 mm clip web press operator and divided. The peritoneum was incised with hook cautery, and the gallbladder was taken from the liver bed, ensuring hemostatis. The endocatch bag was placed in the abdomen and the gallbladder was then removed from the abdomen. The liver bed was examined and the trocars removed under direct visualization. The insufflation was then terminated. The epigastric incision was closed with a 1-PDS suture using a suture passer device. The skin incisions were closed using 4-0 Monocryl sutures. All the wounds dressed with dermabond. The patient tolerated the procedure well, was extubated and taken to the recovery room in satisfactory condition. Finding(s): gallbladder with stones Intra-Operative Complications: none Specimens Removed: Gallbladder Estimated Blood Loss: <5ml Complications: none immediate
[2021-05-05] MEDS ORDERED: oxyCODONE /ACETAMINOPHEN 5-325MG TAB PO PRN (19:16)
[2021-05-05] MEDS ORDERED: LACTATED RINGERS 1,000 ML IV SCH (19:16)
[2021-05-05] MEDS: KETOROLAC 30 MG/1 ML INJ IV SCH (20:51)
[2021-05-06] MEDS: KETOROLAC 30 MG/1 ML INJ IV SCH ×3 (00:44→11:42)
[2021-05-06] MEDS: HEPARIN 5,000 UNIT/1 ML VIAL SUB-Q SCH (05:51)
[2021-05-06 06:10] LABS: Basophils % (Auto) 0.2 % (0.0-1.8); Eosinophils % (Auto) 0.1 % (0.0-4.3); Hematocrit 35.7 % (30.3-42.9); Lymphocytes % (Auto) 9.2 % (13.4-35.0); Mean Corpuscular HGB Conc 34 % (30-34); Mean Corpuscular Volume 92 fl (79-97); Monocytes # (Auto) 0.5 K/mm3 (0.0-0.8); Monocytes % (Auto) 4.9 % (0.0-7.3); Platelet Count 276 K/mm3 (140-440); Red Blood Count 3.89 M/mm3 (3.65-5.03); Red Cell Distribution Width 14.1 % (13.2-15.2)
[2021-05-06 06:21] VITALS: BP 138/67
[2021-05-06 06:26] LABS: Alanine Aminotransferase 20 units/L (7-56); Albumin 4.1 g/dL (3.9-5); Blood Urea Nitrogen 5 mg/dL (7-17); Calcium 9.2 mg/dL (8.4-10.2); Hemolysis Index 4
[2021-05-06 06:46] LABS: BUN/Creatinine Ratio 10
--- NOTE | 2021-05-06 10:39 | Discharge Summary ---
Providers - Providers Date of Admission: 05/03/21 05:13 Attending physician: WINSTON CR MD 05/03/21 05:03 Consult to Physician [CONS] Stat Comment: NAVIN Elder spoke with Dr. Dickens @ [phone] Consulting Provider: ERLINDA DICKENS Physician Instructions: IV Antibiotics, Hospitalist admission Reason For Exam: Cholelithiasis with cholecystitis Primary care physician: TECHNICAL SUPPORT REPRESENTATIVE Hospitalization Condition: Stable Disposition: 30 STILL A PATIENT Exam - Constitutional Vitals: Temp Pulse Resp BP Pulse Ox 97.8 F 58 L 20 138/67 98 05/06/21 04:58 05/06/21 04:58 05/06/21 04:58 05/06/21 04:58 05/06/21 09:22 Plan Care Plan Goals: Please follow-up with your primary care doctor if you have one, within 1 week. Please schedule a follow-up appointment with Dr. Dickens within 1 to 2 weeks. Follow up with: PRIMARY CAREMD [Primary Care Provider] - 3-5 Days Prescriptions: HYDROcodone/APAP 5-325 [Roxana 5/325] 1 each PO Q6HR PRN #20 tablet PRN Reason: Pain
--- NOTE | 2021-05-06 15:00 | Post Anesthesia Evaluation ---
- Post Anesthesia Evaluation Patient Participated: Yes Airway Patent: Yes Stable Respiratory Function: Yes Nausea/Vomiting: No Temp > 96.8F: Yes Pain Manageable: Yes Adequeate Hydration: Yes Anesthesia Complications: Yes Block Receding Appropriately: Not Applicable Patient on Ventilator: No Other Comments: patient is being discharged home
== END 2021-05-06 12:34 | disposition home or self-care (01) | DRG 419 ==
LOC: ED 23:22 → 3A 05-03 05:13
PROVIDERS: ADMIT Hospitalist; ATTEND Student in an Organized Health Care Education/Training Program
PROC: 0FT44ZZ Resection of Gallbladder, Percutaneous Endoscopic Approach (ICD-10-PCS; principal; 2021-05-05)
DX: K80.00 Calculus of gallbladder with acute cholecystitis without obstruction (principal); K21.9 Gastro-esophageal reflux disease without esophagitis; E66.9 Obesity, unspecified; Z71.3 Dietary counseling and surveillance; Z68.37 Body mass index [BMI] 37.0-37.9, adult; Z82.49 Family history of ischemic heart disease and other diseases of the circulatory system; Z90.49 Acquired absence of other specified parts of digestive tract
CPT/HCPCS: 36415; 74177; 80048; 80053; 81001; 82962; 83690; 84703; 85025; 85610; 88304; G0378; J3490; J7120; Q0162; J1100; J1170; J1644; J1885; J2250; J2270; J2405; J2543; J2704; J7030; Q9967